=== PATIENT | female | born 2000 | race Hispanic/Latino ===

== ENCOUNTER 2022-02-23 14:35 | Outpatient (CLI) | payer OTHER | END 2022-02-23 14:36 | disposition home or self-care (01) | LOC: CSHULT 14:35 | PROVIDERS: ATTEND Family Medicine | DX: Z34.02 Encounter for supervision of normal first pregnancy, second trimester (principal) | CPT/HCPCS: 76805 ==

== ENCOUNTER 2022-05-23 14:24 | Inpatient (IN) | payer SELFPAY ==
[2022-05-23 14:50] VITALS: BMI 25.1
== END 2022-05-23 17:09 | disposition home or self-care (01) | DRG 833 ==
LOC: CSHLD 14:24
PROVIDERS: ADMIT Family Medicine; ATTEND Family Medicine
DX: O36.8330 Maternal care for abnormalities of the fetal heart rate or rhythm, third trimester, not applicable or unspecified (principal); O48.0 Post-term pregnancy; Z3A.40 40 weeks gestation of pregnancy; Z83.3 Family history of diabetes mellitus
CPT/HCPCS: 76819; 99282

== ENCOUNTER 2022-05-27 15:54 | Inpatient (IN) | payer MEDICAID, OTHER, SELFPAY ==
[~2022-05-27 15:54] MED LIST: Bupivacaine 0.25% HCL 30 ML VIAL ONE
[2022-05-27 17:01] VITALS: BMI 25.1
[2022-05-27] MEDS ORDERED: Promethazine HCl 25 MG/ML VIAL IM PRN ×2 (18:11→23:33)
[2022-05-27] MEDS ORDERED: Acetaminophen 500 MG TAB PO PRN (18:11)
[2022-05-27] MEDS ORDERED: Ondansetron PF 4 MG/2 ML Vial IVP PRN ×2 (18:11→23:33)
[2022-05-27] MEDS ORDERED: Lidocaine 1% (PF) 30 ML VIAL SC PRN (18:11)
[2022-05-27] MEDS ORDERED: Ibuprofen 800 MG TAB PO PRN (18:11)
[2022-05-27] MEDS ORDERED: Carboprost 250 MCG/ML AMP IM PRN (18:11)
[2022-05-27] MEDS ORDERED: Methylergonovine 0.2 MG/ML VIAL IM PRN (18:11)
[2022-05-27] MEDS ORDERED: Misoprostol 200 MCG TAB PR PRN (18:11)
[2022-05-27] MEDS ORDERED: hydrALAZINE 20 MG/ML VIAL SLOW IVP PRN (18:11)
[2022-05-27] MEDS ORDERED: Butorphanol Tartrate 1 MG/ML VIAL ONE (18:12)
[2022-05-27] MEDS ORDERED: NS w/ Oxytocin 30 units 500 ML IV SCH (18:15)
[2022-05-27 19:01] LABS: Hemoglobin 12.6 g/dL (12.0-15.5); Mean Corpuscular HGB CONC 33.2 g/dL (32.0-36.0); Mean Corpuscular Hemoglobin 29.2 pg (27.0-33.0); Mean Platelet Volume 11.1 fl (7.4-10.4); Platelet Count 208 10x3/uL (150-450); RBC Distribution Width 13.1 % (11.5-14.5); Red Blood Cell (RBC) Count 4.32 10x6/uL (3.90-5.03); White Blood Cell (WBC) Count 11.3 10x3/uL (3.5-10.5)
[2022-05-27 19:50] LABS: HBSAg Index 0.18 S/CO (0-0.99); Hep B Surf Ag Non-Reactive S/CO (NonReactive)
[2022-05-27 19:51] LABS: Syphilis Antibody Nonreactive (Nonreactive); Syphilis Antibody Index 0.05 S/CO (<1.00 Non-Reactive)
[2022-05-27 20:17] LABS: SARS-CoV-2 NAA Rapid Test Not Detected (NotDetected)
[2022-05-27] MEDS ORDERED: Butorphanol Tartrate 1 MG/ML VIAL SLOW IVP PRN (21:56)
[2022-05-27] MEDS ORDERED: Fentanyl 2 mcg/Bup 0.1% Cadd 100 ML ONE (22:51)
[2022-05-27] MEDS ORDERED: Moisturizing Cream (Eucerin) 113 GM JAR TOP PRN (23:33)
[2022-05-27] MEDS ORDERED: ePHEDrine Sulfate 50 MG/10 ML VIAL SLOW IVP PRN (23:33)
[2022-05-27] MEDS ORDERED: Naloxone HCl 0.4 mg/ml Vial IVP PRN ×2 (23:33)
[2022-05-27] MEDS ORDERED: diphenhydrAMINE 50 MG/ML VIAL IVP PRN (23:33)
[2022-05-27] MEDS ORDERED: Acetaminophen 325 MG TAB PO PRN (23:33)
[2022-05-27] MEDS ORDERED: Fentanyl 2 mcg/Bupivacaine 0.1% Cassette 100 ML EPIDURAL SCH (23:45)
[2022-05-27] MEDS ORDERED: Communication Order-Pharmacy FS SCH (23:45)
[2022-05-27] MEDS ORDERED: Lactated Ringer's 500 ML IV PRN (23:51)
[2022-05-28] MEDS ORDERED: NS w/ Oxytocin 30 units 500 ML IV SCH ×2 (08:30→10:45)
[2022-05-28] MEDS ORDERED: Ondansetron PF 4 MG/2 ML Vial IVP PRN (10:33)
[2022-05-28] MEDS ORDERED: hydrALAZINE 20 MG/ML VIAL SLOW IVP PRN (10:34)
[2022-05-28] MEDS ORDERED: Benzocaine-Menthol 82.5 ML CAN TOP PRN (10:34)
[2022-05-28] MEDS ORDERED: Measles/Mumps/Rubella 10 MCG/0.5 ML VIAL SC ONE (10:34)
[2022-05-28] MEDS ORDERED: Milk Of Magnesia 30 ML UDCUP PO PRN (10:34)
[2022-05-28] MEDS ORDERED: Boostrix 0.5 ML (Tdap) VIAL (>/=7 yrs of age) IM ONE (10:34)
[2022-05-28] MEDS ORDERED: Bisacodyl 10 MG SUPP PR PRN (10:34)
[2022-05-28] MEDS: Ibuprofen 800 MG TAB PO SCH (21:48)
[2022-05-28] MEDS: Docusate 100 MG CAP PO SCH (21:48)
[2022-05-28] MEDS ORDERED: HYDROcodone/Acetaminophen 5/325 mg Tablet PO PRN (23:59)
[2022-05-28] MEDS ORDERED: Zolpidem Tartrate 5 MG TAB PO PRN (23:59)
[2022-05-29] MEDS: Ibuprofen 800 MG TAB PO SCH ×3 (05:15→21:06)
[2022-05-29 05:21] LABS: Hemoglobin 11.2 g/dL (12.0-15.5)
[2022-05-29] MEDS: Docusate 100 MG CAP PO SCH ×2 (09:50→21:06)
[2022-05-29] MEDS: Prenatal Vitamin 1 TAB PO SCH (09:50)
[2022-05-30] MEDS: Ibuprofen 800 MG TAB PO SCH (05:52)
[2022-05-30] MEDS: Docusate 100 MG CAP PO SCH (08:05)
[2022-05-30] MEDS: Prenatal Vitamin 1 TAB PO SCH (08:05)
[2022-05-30 10:44] VITALS: BP 103/62; TEMP 98.3
== END 2022-05-30 10:40 | disposition home or self-care (01) | DRG 807 ==
LOC: CSHLD 15:54 → CSHPP 05-28 12:59
PROVIDERS: ADMIT Family Medicine; ATTEND Family Medicine
PROC: 10E0XZZ Delivery of Products of Conception, External Approach (ICD-10-PCS; principal; 2022-05-28)
PROC: 0KQM0ZZ Repair Perineum Muscle, Open Approach (ICD-10-PCS; 2022-05-28)
PROC: 10907ZC Drainage of Amniotic Fluid, Therapeutic from Products of Conception, Via Natural or Artificial Opening (ICD-10-PCS; 2022-05-28)
PROC: 0UQMXZZ Repair Vulva, External Approach (ICD-10-PCS; 2022-05-28)
DX: O48.0 Post-term pregnancy (principal); Z37.0 Single live birth; O70.1 Second degree perineal laceration during delivery; Z3A.41 41 weeks gestation of pregnancy; O77.0 Labor and delivery complicated by meconium in amniotic fluid; Z20.822 Contact with and (suspected) exposure to COVID-19
CPT/HCPCS: 51702; 85014; 85018; 85027; 86780; 86850; 86900; 86901; 87340; 90707; 99285; J0595; J2590; S0020; U0002